=== PATIENT | female | born 1965 | race Caucasian/White ===

== ENCOUNTER 2016-11-25 11:31 | Emergency (ER) | payer BC, OTHER ==
[~2016-11-25] VITALS: Ht 162.6 cm; Wt 108.4 kg
[~2016-11-25 11:31] MED LIST: ADDERALL20 MG PO; ADDERALL5 MG PO; ALEVE220 MG PO; AMLODIPINE BESYL5 MG PO; AMOX TR-K CLV1 EAC4 PO; AMPHETAMINE SAL20 MG PO; ANALGESIC BALM28 GM TP; AVELOX400 MG PO; BUSPAR10 MG PO; CHANTIX0.5 MG PO; CLARITIN,ALAVAR10 MG PO; COMBIVENT200 INHALA IH; CYMBALTA30 MG PO; Desyrel PO; FLAGYL500 MG PO; FOLIC ACID1 MG PO; GABAPENTIN100 MG PO; LEVOTHYROXINE100 MCG PO; LEVOTHYROXINE50 MCG PO; LEVOTHYROXINE75 MCG PO; LEVOTHYROXINE88 MCG PO; LISINOPRIL40 MG PO; Levothroid,Synthroid PO; NICOTINE GUM2 MG BC; NUEDEXTA 20-101 EACH PO; OXECTA5 MG PO; OXYCODONE HCL5 MG PO; PANTOPRAZOLE SO40 MG PO; RITALIN10 MG PO; STRATTERA60 MG PO; SUMATRIPTAN SUC25 MG PO; TESSALON PERLE100 MG PO; THEO-DUR,THEOC200 MG PO; TORADOL10 MG PO; TRAZODONE HCL50 MG PO; ULTRAM50 MG PO; VERAPAMIL HCL80 MG PO; VICODIN,LORT1 TABLET PO; VIIBRYD40 MG PO; VISTARIL50 MG PO; Vancocin Oral Soluti PO; XANAX0.5 MG PO; Xanax PO; ZOLOFT100 MG PO; ZOLPIDEM TARTRAT5 MG PO
[2016-11-25 12:57] LABS: BASOPHIL COUNT 0.1 K/uL (0-0.1); EOSINOPHIL (%) 2.8 % (0-5); EOSINOPHIL COUNT 0.4 K/uL (0-0.3); HEMATOCRIT 43.8 % (36.0-46.0); IMMATURE GRANULOCYTE (%) 0.4 % (0.0-0.7); IMMATURE GRANULOCYTE COUNT 0.1 K/uL; INSTRUMENT ABS NEUTROPHIL CT 10.6 K/uL; MCH 31.9 PG (29.0-34.0); MCHC 33.8 G/DL (30.0-36.0); MCV 94.4 FL (83-99); MONOCYTE (%) 8.6 % (3-12); MONOCYTE COUNT 1.3 K/uL (0-0.8); NEUTROPHIL (%) 68.5 % (45-76); NEUTROPHIL COUNT 10.6 K/uL (1.8-6.4); PLATELET COUNT 301 K/uL (156-360); RBC DIS.WIDTH-CV 12.8 % (11.8-14.6); RBC DIS.WIDTH-SD 44.1 % (39-53); RED BLOOD COUNT 4.64 M/uL (3.80-5.20); WHITE BLOOD COUNT 15.5 K/uL (4.1-10.2)
[2016-11-25 13:09] LABS: CHLORIDE 108 mEq/L (99-109); POTASSIUM 4.1 mEq/L (3.7-5.4); SODIUM 141 mEq/L (136-147)
[2016-11-25 13:10] LABS: MAGNESIUM 2.3 mg/dL (1.3-2.7)
[2016-11-25 13:12] LABS: GLUCOSE 87 mg/dL (70-99)
[2016-11-25 13:13] LABS: ANION GAP 10 MEQ/L (2-14)
[2016-11-25 13:14] LABS: TOTAL BILIRUBIN 0.3 mg/dL (0.0-1.0)
[2016-11-25 13:15] LABS: ALKALINE PHOSPHATASE 88 IU/L (3-129); GFR ESTIMATE (CALCULATED) > 59 mL/min/; SERUM ETHYL ALCOHOL < 10 mg/dL
[2016-11-25 13:17] LABS: UREA NITROGEN (BUN) 19 mg/dL (9-23)
[2016-11-25 13:18] LABS: CREATINE KINASE 113 IU/L (1-294); TOTAL CK 113 IU/L (1-294)
[2016-11-25 13:19] LABS: TROP-I INTERPRETATION NEGATIVE; TROPONIN-I < 0.01 ng/mL (0.0-0.30)
[2016-11-25 13:24] LABS: CK-MB 0.9 ng/mL (0.0-4.9)
[2016-11-25 13:49] LABS: ADD MIUA? NO; BILIRUBIN NEGATIVE; BLOOD NEGATIVE; COLOR YELLOW ((YELLOW)); GLUCOSE (STRIP) NEGATIVE; KETONES NEGATIVE; LEUKOCYTES NEGATIVE; NITRITE NEGATIVE; PROTEIN (STRIP) NEGATIVE; SPECIFIC GRAVITY 1.011 (1.000-1.030); UCUL ADDED? NO; UROBILINOGEN 0.2 MG/DL (0.2-1.0)
[2016-11-25 16:35] VITALS: BP 152/82
== END 2016-11-25 18:00 | disposition left against medical advice (07) ==
LOC: EME 11:31
PROVIDERS: Emergency Medicine
DX: R20.2 Paresthesia of skin (principal); F32.9 Major depressive disorder, single episode, unspecified; F43.10 Post-traumatic stress disorder, unspecified; F17.200 Nicotine dependence, unspecified, uncomplicated
CPT/HCPCS: 80053; 81003; 82550; 82553; 82607; 83735; 84443; 84484; 85025; 90839; 93005; 99281; 99284; G0480

== ENCOUNTER → 2017-01-10 | Outpatient (CLI) | payer BC, MEDICARE ==
[~2017-01-10] MED LIST changes: +AUGMENTIN875 MG PO; -LEVOTHYROXINE75 MCG PO; +SYNTHROID88 MCG PO; +VITAMIN D31000 UNI2 PO; +ZYRTEC10 M3 PO
== END | disposition home or self-care (01) ==
LOC: CDC 12:23
DX: R59.1 Generalized enlarged lymph nodes (principal)
CPT/HCPCS: 93000

== ENCOUNTER 2017-01-13 12:54 | Day surgery (SDC) | payer BC, OTHER ==
[~2017-01-13] VITALS: Ht 162.6 cm; Wt 108.4 kg
[2017-01-13 13:21] VITALS: BP 133/75
[2017-01-13 19:05] VITALS: BP 143/67
[2017-01-13 20:05] VITALS: BP 135/60
[2017-01-16 15:13] LABS: Flow Number of Markers 22 (()); Flow Spec Viability 91 % (()); Flow Specimen Type LYMPH NODE (())
== END 2017-01-13 20:20 | disposition home or self-care (01) ==
LOC: SDC 12:54
PROVIDERS: Thoracic Surgery (Cardiothoracic Vascular Surgery)
PROC: 07B20ZX Excision of Left Neck Lymphatic, Open Approach, Diagnostic (ICD-10-PCS; principal; 2017-01-13)
DX: R59.0 Localized enlarged lymph nodes (principal); Z85.72 Personal history of non-Hodgkin lymphomas; R63.4 Abnormal weight loss; R53.83 Other fatigue; Z92.3 Personal history of irradiation; J44.9 Chronic obstructive pulmonary disease, unspecified; F17.200 Nicotine dependence, unspecified, uncomplicated; Z86.718 Personal history of other venous thrombosis and embolism; K21.9 Gastro-esophageal reflux disease without esophagitis; E03.9 Hypothyroidism, unspecified; Z86.19 Personal history of other infectious and parasitic diseases; Z88.1 Allergy status to other antibiotic agents; Z88.5 Allergy status to narcotic agent; Z88.6 Allergy status to analgesic agent; Z88.8 Allergy status to other drugs, medicaments and biological substances
CPT/HCPCS: 88185 90; 88305; J0330; J0690; J1100; J1170; J2250; J2405; J3010

== ENCOUNTER 2017-01-27 10:50 | Day surgery (SDC) | payer BC, OTHER ==
[~2017-01-27] VITALS: Ht 162.6 cm; Wt 107.9 kg
[2017-01-27 11:38] VITALS: BP 123/71
[2017-01-27 12:17] LABS: PROTHROMBIN TIME 11.7 SEC (10.2-12.9)
[2017-01-27 12:20] LABS: PTT 31.3 SEC (25-37)
[2017-01-27 16:55] VITALS: BP 131/60
[2017-01-27 17:56] VITALS: BP 156/68
[2017-01-28 18:15] LABS: Flow Number of Markers 22 (()); Flow Spec Viability 89 % (()); Flow Specimen Type LYMPH NODE (())
== END 2017-01-27 18:00 | disposition home or self-care (01) ==
LOC: SDC 10:50
PROVIDERS: Thoracic Surgery (Cardiothoracic Vascular Surgery)
PROC: 07B74ZX Excision of Thorax Lymphatic, Percutaneous Endoscopic Approach, Diagnostic (ICD-10-PCS; principal; 2017-01-27)
DX: R59.0 Localized enlarged lymph nodes (principal); Z85.72 Personal history of non-Hodgkin lymphomas; Z92.3 Personal history of irradiation; E03.9 Hypothyroidism, unspecified; R73.03 Prediabetes; F17.210 Nicotine dependence, cigarettes, uncomplicated
CPT/HCPCS: 85610; 85730; 86850; 86900; 86901; 88185 90; 88305; J0131; J0330; J0690; J1100; J1170; J2250; J2405; J2710; J3010